=== PATIENT | female | born 1940 | race Caucasian/White ===

== ENCOUNTER → 2018-05-21 | Outpatient (CLI) | payer OTHER, MEDICAID ==
[~2018-05-21] MED LIST: ALBUAER3 IN; ASPI-231 PO; ATOR10TA52 PO; CLOP75TA41 PO; FERR-7 PO; MECL12.554 PO; NIFE-31 PO; SENN-58 PO; TEMA15CA91 PO; TRAM50TA2 PO
== END | disposition home or self-care (01) ==
LOC: Rad HDHVI 15:05
PROVIDERS: ATTEND Internal Medicine Cardiovascular Disease
DX: I65.23 Occlusion and stenosis of bilateral carotid arteries (principal); I25.10 Atherosclerotic heart disease of native coronary artery without angina pectoris; Z95.5 Presence of coronary angioplasty implant and graft
CPT/HCPCS: 93306; 93880